=== PATIENT | male | born 1975 | race Caucasian/White ===

== ENCOUNTER → 2017-06-17 | Outpatient (CLI) | payer BC ==
[~2017-06-17] MED LIST: COUMADIN PO; LORTAB 5-325 M1 EACH PO; MEDROL PO; NAPROSYN500 MG PO; NO MEDICATIONS; VOLTAREN75 MG PO
--- NOTE | ~2017-06-17 | CR63 ---
[facility]. [facility] A Service of [facility] & [facility] RADIOLOGY TEXT RESULTS PATIENT: OLAMIDE TAM LOCATION: [facility] : 75 UNIT #: [id number] AGE: [address]: Jose Luis Louis MD SEX: M ORDER DR: [id number] [place] [id number] O MR#: [id number] Acc #: [id number] NAME: OLAMIDE TAM : 1975 SEX: M STUDY DATE/TIME: 06/17/2017 10:56 [facility] RO[facility]: STUDY DESCRIPTION: CR Chest 2 View Attending Physician: Jose Luis Louis M.D. Referring Physician: Jose Luis Louis M.D. Ordering Physician: Jose Luis Louis M.D. Primary Care Physician: Jose Luis Louis M.D. MEDICAL IMAGING REPORT This report is preliminary unless electronic signature is present. EXAM Chest PA and lateral 06/17/2017 HISTORY Shortness of breath and tightness in chest tightness across upper chest for 2 months. Smoking history for 32 years. Cough and chest congestion. Benign essential hypertension FINDINGS The cardiac and mediastinal structures are stable compared with 09/11/2015. The lungs are hyperinflated with emphysematous and fibrotic changes characteristic of COPD. Old healed left rib fractures are noted. There are no pleural effusions. No pneumothorax. IMPRESSION COPD. Old healed left rib fractures. No active pulmonary disease. Dictated by... Pilo Perez M.D. THIS IS AN ELECTRONICALLY VERIFIED REPORT Pilo Perez M.D. at 06/18/2017 10:18 AM TERE/danyel TD: 06/17/2017 13:52 JOB #: [id number] MEDICAL IMAGING REPORT Page 1 of 1
== END | disposition home or self-care (01) ==
LOC: SRAD 10:34
DX: R06.02 Shortness of breath (principal); F17.200 Nicotine dependence, unspecified, uncomplicated; J44.9 Chronic obstructive pulmonary disease, unspecified; Z87.81 Personal history of (healed) traumatic fracture; Z80.1 Family history of malignant neoplasm of trachea, bronchus and lung
CPT/HCPCS: 71020